=== PATIENT | female | born 1980 | race Caucasian/White ===

== ENCOUNTER → 2016-11-22 | Outpatient (CLI) | payer OTHER ==
[~2016-11-22] MED LIST: ALLERGY PILL; AMBIEN5 MG PO; ATIVAN 0.5MG0.5 MG PO; AUGMENTIN250 MG PO; CLEOCIN150 MG PO; CYMBALTA30 MG PO; CYMBALTA60 MG PO; DILAUDID1 MG/ML IVP; FLAGYL500 MG IV; FLONASE 50 MCG/16 GM NOSE; FLORASTOR250 MG PO; HEPARIN5000 UNIT/ SUB-Q; INVANZ1 G1 IV; MOBIC7.5 MG PO; NASONEX NASAL S17 GM NOSE; NORCO 5-325 MG1 TAB PO; PERCOCET 5-3251 EACH PO; PHENERGAN25 M1 PO; PROTONIX40 MG PO; REGLAN10 MG IVP; SYNTHROID50 MCG PO; ULTRAM50 MG PO; ZOFRAN4 MG PO; norco PO
== END | disposition disaster alternative care site (69) ==
LOC: GRAD 10:12
DX: D12.6 Benign neoplasm of colon, unspecified (principal); E04.9 Nontoxic goiter, unspecified